=== PATIENT | male | born 1945 | race African-American/Black ===

== ENCOUNTER 2019-06-24 12:17 | Inpatient (IN) ==
[2019-06-24] MEDS ORDERED: SODIUM CHLORIDE 0.9% 500 ML IV STA (12:46)
[2019-06-24] MEDS ORDERED: PANTOPRAZOLE 40 MG VIAL IV STA (12:46)
[2019-06-24] MEDS ORDERED: ONDANSETRON 4 MG/2 ML VIAL IV STA (12:46)
[2019-06-24 13:01] LABS: Basophils # 0.1 10*3/uL (0.0-0.2); Basophils % 0.6 % (0.0-0.8); Eosinophils % 0.4 % (0.00-10.9); Hematocrit 35.3 VOL% (42.0-52.0); Hemoglobin 11.1 GM/DL (14.0-18.0); Immature Granulocytes % 0.3 %; Immature Granulocytes Absolute 0.03 #; Lymphocytes # 1.2 10*3/uL (1.4-4.0); Lymphocytes % 12.9 % (21.2-54.2); Mean Corpuscular HGB Conc 31.4 GM/DL (32-36); Mean Corpuscular Volume 81.5 FL (87-102); Mean Platelet Volume 10.2 FL (9.6-12.0); Monocytes % 4.2 % (1.7-12.7); Neutrophils % 81.6 % (38.7-73.9); Platelet Count 353 T/CUMM (130-400); Red Blood Count 4.33 MC/CUMM (3.8-5.5); Red Cell Distribution Width 14.7 % (9.3-17.3); White Blood Count 9.6 T/CUMM (4-12)
[2019-06-24 13:21] LABS: Albumin 3.3 G/DL (3.4-5.0); Bilirubin,Total 0.4 MG/DL (0.2-1.0); Calcium 10.5 MG/DL (8.5-10.1); Osmolality,Calculated 282.3 MOS/KG (273-304); Total Protein 7.6 G/DL (6.4-8.3)
[2019-06-24 13:35] LABS: Apearance,Urine CLEAR (Clear); Bilirubin,Urine Negative (Negative); Blood, Urine Negative (Negative); Glucose,Urine (UA) Negative (Negative); Ketones,Urine 5 mg/dL (Negative); Nitrite,Urine Negative (Negative); Protein,Urine Negative; Squamous Epithelial Cell,Urine Occasional /HPF (0-10); Urine Color Yellow (Yellow); Urine Specific Gravity 1.018 (1.001-1.035)
[2019-06-24] MEDS ORDERED: ONDANSETRON 4 MG/2 ML VIAL IV PRN (15:56)
[2019-06-24] MEDS ORDERED: [UNRECOGNIZED DRUG - REMARK] PO PRN (15:59)
[2019-06-24] MEDS ORDERED: SODIUM CHLORIDE 0.9% 100 ML IV ONE (16:30)
[2019-06-24] MEDS ORDERED: PIPERACILLIN/TAZOBACTAM 3,375 MG VIAL IV ONE (16:30)
[2019-06-24] MEDS: ENOXAPARIN 40 MG/0.4 ML SYRINGE SUBCUT SCH (16:39)
[2019-06-24] MEDS: PIPERACILLIN/TAZOBACTAM 3,375 MG in SODIUM CHLORIDE 0.9% 100 ML IV SCH ×2 (16:40→22:59)
[2019-06-24] MEDS ORDERED: GLUCAGON 1 MG VIAL IM PRN (17:09)
[2019-06-24] MEDS ORDERED: DEXTROSE 10% 250 ML BAG IV PRN (17:09)
[2019-06-24] MEDS: SODIUM CHLORIDE 0.9% 1,000 ML IV SCH (17:50)
[2019-06-24] MEDS: INSULIN REGULAR 100 UNIT/ML SUBCUT SCH ×2 (17:51→22:49)
[2019-06-24] MEDS: ALBUTEROL/IPRATROPIUM 3 ML NEB RESP TX SCH (18:40)
[2019-06-24] MEDS ORDERED: QUEtiapine 25 MG TABLET PO SCH (21:00)
[2019-06-24] MEDS: GLYCOPYRROLATE 1 MG TABLET PO SCH (21:48)
[2019-06-24] MEDS: ATORVASTATIN 40 MG TABLET PO SCH (21:48)
[2019-06-24] MEDS: DOCUSATE SODIUM 100 MG CAPSULE PO SCH (21:48)
[2019-06-24] MEDS: METOPROLOL TARTRATE 50 MG TABLET PO SCH (21:49)
[2019-06-25] MEDS: ALBUTEROL/IPRATROPIUM 3 ML NEB RESP TX SCH ×4 (00:20→19:00)
[2019-06-25] MEDS: PIPERACILLIN/TAZOBACTAM 3,375 MG in SODIUM CHLORIDE 0.9% 100 ML IV SCH ×3 (04:54→20:21)
[2019-06-25 07:22] LABS: Basophils # 0.1 10*3/uL (0.0-0.2); Eosinophils % 0.3 % (0.00-10.9)
[2019-06-25 07:28] LABS: Hematocrit 28.5 VOL% (42.0-52.0); Immature Granulocytes % 0.2 %; Immature Granulocytes Absolute 0.01 #; Lymphocytes # 2.1 10*3/uL (1.4-4.0); Lymphocytes % 35.6 % (21.2-54.2); Mean Corpuscular HGB Conc 31.9 GM/DL (32-36); Mean Corpuscular Volume 83.8 FL (87-102); Mean Platelet Volume 10.2 FL (9.6-12.0); Monocytes % 8.2 % (1.7-12.7); Neutrophils % 54.7 % (38.7-73.9); Platelet Count 298 T/CUMM (130-400)
[2019-06-25 07:29] LABS: Hemoglobin 9.1 GM/DL (14.0-18.0); White Blood Count 5.9 T/CUMM (4-12)
[2019-06-25 07:52] LABS: Albumin 2.7 G/DL (3.4-5.0); Bilirubin,Total 0.4 MG/DL (0.2-1.0); Calcium 9.3 MG/DL (8.5-10.1); Osmolality,Calculated 291.7 MOS/KG (273-304); Total Protein 6.6 G/DL (6.4-8.3)
[2019-06-25] MEDS ORDERED: LISINOPRIL 20 MG TABLET PO SCH (09:00)
[2019-06-25] MEDS: DOCUSATE SODIUM 100 MG CAPSULE PO SCH ×2 (09:48→21:24)
[2019-06-25] MEDS: METOPROLOL TARTRATE 50 MG TABLET PO SCH ×2 (09:48→21:25)
[2019-06-25] MEDS: TAMSULOSIN 0.4 MG CAPSULE PO SCH (09:48)
[2019-06-25] MEDS: GLYCOPYRROLATE 1 MG TABLET PO SCH ×3 (09:48→21:25)
[2019-06-25] MEDS: amLODIPine 10 MG TABLET PO SCH (09:49)
[2019-06-25] MEDS: LORATADINE 10 MG TABLET PO SCH (09:49)
[2019-06-25] MEDS: POLYETHYLENE GLYCOL POWDER 17 GM PACK PO SCH (09:49)
[2019-06-25] MEDS: QUEtiapine 25 MG TABLET PO SCH ×2 (09:58→21:25)
[2019-06-25] MEDS: LANSOPRAZOLE ODT 30 MG TABLET PO SCH (09:58)
[2019-06-25] MEDS: SODIUM CHLORIDE 0.9% 1,000 ML IV SCH ×2 (11:06→21:24)
[2019-06-25] MEDS: INSULIN REGULAR 100 UNIT/ML SUBCUT SCH ×4 (11:07→21:25)
[2019-06-25] MEDS: ENOXAPARIN 40 MG/0.4 ML SYRINGE SUBCUT SCH (16:33)
[2019-06-25 16:50] LABS: Apearance,Urine Slightly Hazy (Clear); Bilirubin,Urine Negative (Negative); Blood, Urine Negative (Negative); Glucose,Urine (UA) Negative (Negative); Ketones,Urine Negative (Negative); Mucus,Urine Occasional /LPF (Occasional); Nitrite,Urine Negative (Negative); Protein,Urine Negative; RBC,Urine <1 /HPF (0-4); Squamous Epithelial Cell,Urine Occasional /HPF (0-10); Urine Color Amber (Yellow); Urine Specific Gravity 1.023 (1.001-1.035); WBC,Urine 7 /HPF (0-6)
[2019-06-25] MEDS: ATORVASTATIN 40 MG TABLET PO SCH (21:25)
[2019-06-26] MEDS: ALBUTEROL/IPRATROPIUM 3 ML NEB RESP TX SCH ×7 (00:24→22:44)
[2019-06-26] MEDS: PIPERACILLIN/TAZOBACTAM 3,375 MG in SODIUM CHLORIDE 0.9% 100 ML IV SCH ×3 (04:13→21:07)
[2019-06-26 06:30] LABS: Calcium 9.1 MG/DL (8.5-10.1); Osmolality,Calculated 290.6 MOS/KG (273-304)
[2019-06-26] MEDS: SODIUM CHLORIDE 0.9% 1,000 ML IV SCH (08:26)
[2019-06-26] MEDS: INSULIN REGULAR 100 UNIT/ML SUBCUT SCH ×4 (08:42→21:33)
[2019-06-26] MEDS: DORNASE ALFA 2.5 MG/2.5 ML VIAL RESP TX SCH ×2 (08:56→19:13)
[2019-06-26] MEDS ORDERED: LIDOCAINE 2% 5 ML VIAL ONE (09:00)
[2019-06-26] MEDS ORDERED: PROPOFOL 200 MG/20 ML VIAL IV ONE (09:00)
[2019-06-26] MEDS ORDERED: SODIUM PHOSPHATE INJ 15 MMOL in SODIUM CHLORIDE 0.9% 250 ML IV ONE (09:15)
[2019-06-26] MEDS: POLYETHYLENE GLYCOL POWDER 17 GM PACK PO SCH (09:21)
[2019-06-26] MEDS: GLYCOPYRROLATE 1 MG TABLET PO SCH ×3 (09:21→20:51)
[2019-06-26] MEDS: TAMSULOSIN 0.4 MG CAPSULE PO SCH ×3 (09:22→20:51)
[2019-06-26] MEDS: LISINOPRIL 20 MG TABLET PO SCH (09:22)
[2019-06-26] MEDS: METOPROLOL TARTRATE 50 MG TABLET PO SCH ×2 (09:22→21:03)
[2019-06-26] MEDS: QUEtiapine 25 MG TABLET PO SCH ×2 (09:22→21:04)
[2019-06-26] MEDS: LORATADINE 10 MG TABLET PO SCH (09:22)
[2019-06-26] MEDS: DOCUSATE SODIUM 100 MG CAPSULE PO SCH ×2 (09:23→21:03)
[2019-06-26] MEDS: LANSOPRAZOLE ODT 30 MG TABLET PO SCH (09:23)
[2019-06-26] MEDS: amLODIPine 10 MG TABLET PO SCH (09:23)
[2019-06-26] MEDS ORDERED: DEXTROSE 50% 25 GM/50 ML VIAL IV PRN (11:27)
[2019-06-26] MEDS: ENOXAPARIN 40 MG/0.4 ML SYRINGE SUBCUT SCH (17:00)
[2019-06-26] MEDS: ACETAMINOPHEN 325 MG TABLET PO PRN (20:51)
[2019-06-26] MEDS: DUTASTERIDE 0.5 MG CAPSULE PO SCH (20:51)
[2019-06-26] MEDS: ATORVASTATIN 40 MG TABLET PO SCH (21:03)
[2019-06-27] MEDS: ALBUTEROL/IPRATROPIUM 3 ML NEB RESP TX SCH ×6 (02:54→23:43)
[2019-06-27] MEDS: PIPERACILLIN/TAZOBACTAM 3,375 MG in SODIUM CHLORIDE 0.9% 100 ML IV SCH ×3 (04:03→21:12)
[2019-06-27 06:53] LABS: Osmolality,Calculated 295.7 MOS/KG (273-304)
[2019-06-27] MEDS: DORNASE ALFA 2.5 MG/2.5 ML VIAL RESP TX SCH ×2 (07:33→19:41)
[2019-06-27] MEDS: POLYETHYLENE GLYCOL POWDER 17 GM PACK PO SCH (08:39)
[2019-06-27] MEDS: LISINOPRIL 20 MG TABLET PO SCH (08:39)
[2019-06-27] MEDS: amLODIPine 10 MG TABLET PO SCH (08:40)
[2019-06-27] MEDS: LORATADINE 10 MG TABLET PO SCH (08:40)
[2019-06-27] MEDS: QUEtiapine 25 MG TABLET PO SCH ×2 (08:40→21:11)
[2019-06-27] MEDS: TAMSULOSIN 0.4 MG CAPSULE PO SCH ×2 (08:40→21:10)
[2019-06-27] MEDS: GLYCOPYRROLATE 1 MG TABLET PO SCH ×3 (08:40→21:11)
[2019-06-27] MEDS: LANSOPRAZOLE ODT 30 MG TABLET PO SCH (08:40)
[2019-06-27] MEDS: INSULIN REGULAR 100 UNIT/ML SUBCUT SCH ×4 (08:41→21:39)
[2019-06-27] MEDS: METOPROLOL TARTRATE 50 MG TABLET PO SCH ×2 (08:41→21:10)
[2019-06-27] MEDS: DOCUSATE SODIUM 100 MG CAPSULE PO SCH ×2 (08:41→21:10)
[2019-06-27] MEDS: ENOXAPARIN 40 MG/0.4 ML SYRINGE SUBCUT SCH (16:39)
[2019-06-27 19:04] LABS: Osmolality,Calculated 291.1 MOS/KG (273-304)
[2019-06-27] MEDS: ATORVASTATIN 40 MG TABLET PO SCH (21:10)
[2019-06-27] MEDS: DUTASTERIDE 0.5 MG CAPSULE PO SCH (21:10)
[2019-06-27] MEDS: ACETAMINOPHEN 325 MG TABLET PO PRN (21:19)
[2019-06-28] MEDS: ALBUTEROL/IPRATROPIUM 3 ML NEB RESP TX SCH ×3 (02:03→10:54)
[2019-06-28] MEDS: PIPERACILLIN/TAZOBACTAM 3,375 MG in SODIUM CHLORIDE 0.9% 100 ML IV SCH ×2 (04:33→13:28)
[2019-06-28 05:09] LABS: Basophils % 0.6 % (0.0-0.8); Eosinophils # 0.2 10*3/uL (0.0-0.87); Eosinophils % 2.7 % (0.00-10.9); Hemoglobin 8.7 GM/DL (14.0-18.0); Immature Granulocytes % 0.3 %; Immature Granulocytes Absolute 0.02 #; Lymphocytes % 29.7 % (21.2-54.2); Mean Corpuscular HGB Conc 31.1 GM/DL (32-36); Mean Corpuscular Volume 82.4 FL (87-102); Mean Platelet Volume 10.7 FL (9.6-12.0); Monocytes % 6.4 % (1.7-12.7); Neutrophils % 60.3 % (38.7-73.9); Platelet Count 239 T/CUMM (130-400); White Blood Count 6.6 T/CUMM (4-12)
[2019-06-28] MEDS: DORNASE ALFA 2.5 MG/2.5 ML VIAL RESP TX SCH (07:25)
[2019-06-28] MEDS: POLYETHYLENE GLYCOL POWDER 17 GM PACK PO SCH (09:16)
[2019-06-28] MEDS: amLODIPine 10 MG TABLET PO SCH (09:17)
[2019-06-28] MEDS: TAMSULOSIN 0.4 MG CAPSULE PO SCH (09:17)
[2019-06-28] MEDS: QUEtiapine 25 MG TABLET PO SCH (09:17)
[2019-06-28] MEDS: LISINOPRIL 20 MG TABLET PO SCH (09:17)
[2019-06-28] MEDS: LORATADINE 10 MG TABLET PO SCH (09:18)
[2019-06-28] MEDS: GLYCOPYRROLATE 1 MG TABLET PO SCH (09:18)
[2019-06-28] MEDS: METOPROLOL TARTRATE 50 MG TABLET PO SCH (09:18)
[2019-06-28] MEDS: DOCUSATE SODIUM 100 MG CAPSULE PO SCH (09:18)
[2019-06-28] MEDS: ACETAMINOPHEN 325 MG TABLET PO PRN (09:18)
[2019-06-28] MEDS: LANSOPRAZOLE ODT 30 MG TABLET PO SCH (09:19)
[2019-06-28] MEDS: INSULIN REGULAR 100 UNIT/ML SUBCUT SCH ×2 (09:21→13:28)
[2019-06-28 13:30] VITALS: BP 127/67
== END 2019-06-28 13:14 | DRG 393 ==
LOC: EDUNIT# → EDBD → N.ED 12:17 → N.5E 12:17 → OBSVTOIN 15:56 → N.EDINP 15:56 → INTOOBSV 15:56 → N.5E 17:08
PROVIDERS: ADMIT Internal Medicine; ATTEND Internal Medicine
PROC: EGDWPEG (ICD-10-PCS; 2019-06-26 08:35)

== ENCOUNTER 2019-07-15 10:16 | Inpatient (IN) ==
[2019-07-15] MEDS ORDERED: PIPERACILLIN/TAZOBACTAM 3,375 MG in SODIUM CHLORIDE 0.9% 100 ML IV STA (10:41)
[2019-07-15] MEDS ORDERED: ALBUTEROL 2.5 MG/3 ML NEB RESP TX STA (10:41)
[2019-07-15] MEDS ORDERED: SODIUM CHLORIDE 0.9% 1,000 ML IV STA ×2 (10:41→13:27)
[2019-07-15 12:03] LABS: INR 0.9; PT Patient Result 10.2 SECS (9.6-12.2)
[2019-07-15 12:18] LABS: Albumin 2.5 G/DL (3.4-5.0); Basophils % 0.1 % (0.0-0.8); Bilirubin,Total 0.4 MG/DL (0.2-1.0); Calcium 9.7 MG/DL (8.5-10.1); Hematocrit 33.2 VOL% (42.0-52.0); Hemoglobin 10.3 GM/DL (14.0-18.0); Immature Granulocytes % 0.5 %; Immature Granulocytes Absolute 0.08 #; Lymphocytes # 0.9 10*3/uL (1.4-4.0); Lymphocytes % 5.8 % (21.2-54.2); Mean Corpuscular Volume 81.6 FL (87-102); Neutrophils % 89.6 % (38.7-73.9); Osmolality,Calculated 311.7 MOS/KG (273-304); Platelet Count 283 T/CUMM (130-400); Red Blood Count 4.07 MC/CUMM (3.8-5.5); Red Cell Distribution Width 15.5 % (9.3-17.3); Total Protein 7.3 G/DL (6.4-8.3); White Blood Count 15.3 T/CUMM (4-12)
[2019-07-15] MEDS ORDERED: ACETAMINOPHEN 325 MG TABLET PO PRN (13:47)
[2019-07-15] MEDS ORDERED: ALBUTEROL 2.5 MG/3 ML NEB RESP TX PRN (13:47)
[2019-07-15] MEDS ORDERED: ONDANSETRON 4 MG/2 ML VIAL IV PRN (13:47)
[2019-07-15] MEDS ORDERED: PROMETHAZINE 25 MG/1 ML VIAL IM PRN (13:47)
[2019-07-15] MEDS ORDERED: NOREPINEPHRINE 8 MG in SODIUM CHLORIDE 0.9% 242 ML IV PRN (13:55)
[2019-07-15] MEDS ORDERED: SODIUM CHLORIDE 0.9% 500 ML IV STA (13:55)
[2019-07-15] MEDS ORDERED: GLUCAGON 1 MG VIAL IM PRN (13:58)
[2019-07-15] MEDS ORDERED: DEXTROSE 10% 250 ML BAG IV PRN (13:58)
[2019-07-15] MEDS ORDERED: SALIVA SUBSTITUTE SPRAY 60 ML CAN SWISH/SPIT PRN (14:01)
[2019-07-15 14:55] LABS: Thyroid Stimulating Hormone 1.6 uIU/ml (0.358-3.74)
[2019-07-15] MEDS ORDERED: ENOXAPARIN 30 MG/0.3 ML SYRINGE SUBCUT SCH (15:00)
[2019-07-15] MEDS ORDERED: LEVOFLOXACIN INJ 750 MG in PREMIX 1 EACH IV SCH (15:00)
[2019-07-15 15:07] LABS: Apearance,Urine CLOUDY (Clear); Bacteria,Urine Occasional /HPF (Few); Bilirubin,Urine Negative (Negative); Blood, Urine Large mg/dL (Negative); Glucose,Urine (UA) 50 mg/dL (Negative); Hyaline Casts,Urine 3 /LPF (0-3); Ketones,Urine Negative (Negative); Nitrite,Urine Negative (Negative); Protein,Urine 30 MG/DL; Squamous Epithelial Cell,Urine Occasional /HPF (0-10); Urine Color Amber (Yellow); Urine Specific Gravity 1.019 (1.001-1.035); Urine Urobilinogen < 2.0 EU/DL (0.2-1.0); WBC,Urine 7 /HPF (0-6)
[2019-07-15] MEDS: ALBUTEROL/IPRATROPIUM 3 ML NEB RESP TX SCH ×2 (16:05→20:14)
[2019-07-15] MEDS: DEXTROSE 5% NACL 0.45% 1,000 ML IV SCH (16:30)
[2019-07-15 17:36] LABS: INR 0.9; PT Patient Result 10.3 SECS (9.6-12.2)
[2019-07-15] MEDS: CEFEPIME 1,000 MG in SODIUM CHLORIDE 0.9% 100 ML IV SCH (18:33)
[2019-07-15] MEDS: HYDROCORTISONE 100 MG VIAL IV SCH (18:34)
[2019-07-15] MEDS ORDERED: ALBUTEROL/IPRATROPIUM 3 ML NEB RESP TX SCH (19:00)
[2019-07-15] MEDS: VANCOMYCIN INJ 1,000 MG in SODIUM CHLORIDE 0.9% 250 ML IV SCH (19:17)
[2019-07-15 19:29] LABS: Apearance,Urine CLOUDY (Clear); Bilirubin,Urine Negative (Negative); Blood, Urine Large mg/dL (Negative); Glucose,Urine (UA) 50 mg/dL (Negative); Ketones,Urine Negative (Negative); Mucus,Urine Occasional /LPF (Occasional); Nitrite,Urine Negative (Negative); Protein,Urine 30 MG/DL; Squamous Epithelial Cell,Urine Occasional /HPF (0-10); Urine Color Amber (Yellow); Urine Specific Gravity 1.018 (1.001-1.035); Urine Urobilinogen < 2.0 EU/DL (0.2-1.0); WBC,Urine 3 /HPF (0-6)
[2019-07-15] MEDS: INSULIN LISPRO 100 UNIT/ML SUBCUT SCH (20:05)
[2019-07-15] MEDS: DORNASE ALFA 2.5 MG/2.5 ML VIAL RESP TX SCH (20:14)
[2019-07-15] MEDS: DUTASTERIDE 0.5 MG CAPSULE PO SCH (20:33)
[2019-07-15] MEDS: TAMSULOSIN 0.4 MG CAPSULE PO SCH (20:36)
[2019-07-15] MEDS ORDERED: ATORVASTATIN 40 MG TABLET PEG SCH (21:00)
[2019-07-16] MEDS: CEFEPIME 1,000 MG in SODIUM CHLORIDE 0.9% 100 ML IV SCH ×3 (00:01→16:00)
[2019-07-16] MEDS: HYDROCORTISONE 100 MG VIAL IV SCH ×4 (00:01→16:15)
[2019-07-16] MEDS: INSULIN LISPRO 100 UNIT/ML SUBCUT SCH ×4 (00:04→19:11)
[2019-07-16] MEDS: ALBUTEROL/IPRATROPIUM 3 ML NEB RESP TX SCH ×7 (00:17→23:31)
[2019-07-16] MEDS: DEXTROSE 5% NACL 0.45% 1,000 ML IV SCH ×3 (00:30→16:56)
[2019-07-16 04:55] LABS: Hemoglobin 9.1 GM/DL (14.0-18.0); Immature Granulocytes % 0.3 %; Immature Granulocytes Absolute 0.04 #; Lymphocytes # 0.6 10*3/uL (1.4-4.0); Mean Corpuscular HGB Conc 30.3 GM/DL (32-36); Mean Corpuscular Volume 82.6 FL (87-102); Monocytes % 2.3 % (1.7-12.7); Neutrophils % 92.4 % (38.7-73.9); Platelet Count 242 T/CUMM (130-400); Red Blood Count 3.63 MC/CUMM (3.8-5.5); Red Cell Distribution Width 15.4 % (9.3-17.3); White Blood Count 12.4 T/CUMM (4-12)
[2019-07-16 05:16] LABS: Bilirubin,Total 0.6 MG/DL (0.2-1.0); Calcium 9.1 MG/DL (8.5-10.1); Osmolality,Calculated 309.7 MOS/KG (273-304); Risk Ratio 2.29; Total Protein 6.4 G/DL (6.4-8.3); VLDL CHOLESTEROL 19.4 MG/DL
[2019-07-16 05:47] LABS: Band Neutrophils 1 % (0-10); Lymphocytes 5 % (20-55); Platelet Estimate Adequate; Segmented Neutrophils 92 % (50-85); Total Cells Counted 100
[2019-07-16 05:48] LABS: Hypochromasia 1+; Ovalocytes Slight
[2019-07-16] MEDS: DORNASE ALFA 2.5 MG/2.5 ML VIAL RESP TX SCH ×2 (07:52→20:35)
[2019-07-16] MEDS ORDERED: PANTOPRAZOLE 40 MG TABLET PO SCH (09:00)
[2019-07-16] MEDS ORDERED: FUROSEMIDE 40 MG/4 ML VIAL IV ONE (09:10)
[2019-07-16] MEDS: GLYCOPYRROLATE 1 MG TABLET PEG SCH (09:30)
[2019-07-16] MEDS: LANSOPRAZOLE ODT 30 MG TABLET PEG SCH (09:30)
[2019-07-16] MEDS: TAMSULOSIN 0.4 MG CAPSULE PO SCH ×2 (09:30→20:19)
[2019-07-16] MEDS: POLYETHYLENE GLYCOL POWDER 17 GM PACK PEG SCH (09:30)
[2019-07-16] MEDS ORDERED: ALBUMIN 25% 25 GM in PREMIX 1 EACH IV ONE (11:30)
[2019-07-16] MEDS ORDERED: DEXTROSE 50% 25 GM/50 ML VIAL IV PRN (13:09)
[2019-07-16] MEDS: VANCOMYCIN INJ 1,000 MG in SODIUM CHLORIDE 0.9% 250 ML IV SCH (19:11)
[2019-07-16] MEDS: ENOXAPARIN 40 MG/0.4 ML SYRINGE SUBCUT SCH (20:19)
[2019-07-16] MEDS: DUTASTERIDE 0.5 MG CAPSULE PO SCH (20:19)
[2019-07-16] MEDS ORDERED: FLUDROCORTISONE 0.1 MG TABLET PO SCH (21:00)
[2019-07-16] MEDS ORDERED: METOPROLOL TARTRATE 50 MG TABLET PEG SCH (21:00)
[2019-07-17] MEDS: HYDROCORTISONE 100 MG VIAL IV SCH ×4 (00:55→16:24)
[2019-07-17] MEDS: CEFEPIME 1,000 MG in SODIUM CHLORIDE 0.9% 100 ML IV SCH ×4 (00:59→20:21)
[2019-07-17] MEDS: INSULIN LISPRO 100 UNIT/ML SUBCUT SCH ×4 (01:45→17:44)
[2019-07-17] MEDS: ALBUTEROL/IPRATROPIUM 3 ML NEB RESP TX SCH ×5 (04:20→19:08)
[2019-07-17 04:40] LABS: Basophils % 0.1 % (0.0-0.8); Hematocrit 28.9 VOL% (42.0-52.0); Hemoglobin 8.9 GM/DL (14.0-18.0); Immature Granulocytes % 1.3 %; Immature Granulocytes Absolute 0.13 #; Lymphocytes # 0.7 10*3/uL (1.4-4.0); Lymphocytes % 7.2 % (21.2-54.2); Mean Corpuscular HGB Conc 30.8 GM/DL (32-36); Mean Corpuscular Volume 83.3 FL (87-102); Mean Platelet Volume 11.2 FL (9.6-12.0); Monocytes % 3.6 % (1.7-12.7); Neutrophils % 87.8 % (38.7-73.9); Platelet Count 240 T/CUMM (130-400); Red Blood Count 3.47 MC/CUMM (3.8-5.5); Red Cell Distribution Width 15.3 % (9.3-17.3)
[2019-07-17 05:18] LABS: Prealbumin 7.8 MG/DL (20-40)
[2019-07-17 05:24] LABS: Albumin 2.3 G/DL (3.4-5.0); Bilirubin,Total 0.4 MG/DL (0.2-1.0); Calcium 9.4 MG/DL (8.5-10.1); Osmolality,Calculated 317.9 MOS/KG (273-304); Total Protein 6.7 G/DL (6.4-8.3)
[2019-07-17] MEDS: DORNASE ALFA 2.5 MG/2.5 ML VIAL RESP TX SCH ×2 (07:39→19:08)
[2019-07-17] MEDS: DEXTROSE 5% NACL 0.45% 1,000 ML IV SCH ×2 (07:53→08:59)
[2019-07-17] MEDS: LANSOPRAZOLE ODT 30 MG TABLET PEG SCH (08:32)
[2019-07-17] MEDS: amLODIPine 10 MG TABLET PO SCH (08:32)
[2019-07-17] MEDS: TAMSULOSIN 0.4 MG CAPSULE PO SCH ×2 (08:32→20:24)
[2019-07-17] MEDS: POLYETHYLENE GLYCOL POWDER 17 GM PACK PEG SCH (08:32)
[2019-07-17] MEDS: METOPROLOL TARTRATE 50 MG TABLET PEG SCH ×2 (08:32→20:24)
[2019-07-17] MEDS: GLYCOPYRROLATE 1 MG TABLET PEG SCH (08:32)
[2019-07-17] MEDS: QUEtiapine 25 MG TABLET PEG SCH (14:08)
[2019-07-17] MEDS: VANCOMYCIN INJ 1,000 MG in SODIUM CHLORIDE 0.9% 250 ML IV SCH (17:44)
[2019-07-17] MEDS: ENOXAPARIN 40 MG/0.4 ML SYRINGE SUBCUT SCH (20:23)
[2019-07-17] MEDS: DUTASTERIDE 0.5 MG CAPSULE PO SCH (20:24)
[2019-07-17] MEDS ORDERED: QUEtiapine 25 MG TABLET PO SCH (21:00)
[2019-07-18] MEDS: ALBUTEROL/IPRATROPIUM 3 ML NEB RESP TX SCH ×4 (00:02→11:43)
[2019-07-18] MEDS: HYDROCORTISONE 100 MG VIAL IV SCH ×2 (00:32→09:50)
[2019-07-18] MEDS: INSULIN LISPRO 100 UNIT/ML SUBCUT SCH ×3 (00:33→12:35)
[2019-07-18] MEDS: CEFEPIME 1,000 MG in SODIUM CHLORIDE 0.9% 100 ML IV SCH ×2 (03:42→09:55)
[2019-07-18] MEDS: DORNASE ALFA 2.5 MG/2.5 ML VIAL RESP TX SCH (07:11)
[2019-07-18 07:50] VITALS: BP 178/89
[2019-07-18 08:31] LABS: Basophils % 0.1 % (0.0-0.8); Hematocrit 31.6 VOL% (42.0-52.0); Hemoglobin 9.5 GM/DL (14.0-18.0); Immature Granulocytes % 0.5 %; Immature Granulocytes Absolute 0.05 #; Lymphocytes # 1.6 10*3/uL (1.4-4.0); Lymphocytes % 16.4 % (21.2-54.2); Mean Corpuscular HGB Conc 30.1 GM/DL (32-36); Mean Corpuscular Volume 83.8 FL (87-102); Mean Platelet Volume 10.9 FL (9.6-12.0); Monocytes % 3.3 % (1.7-12.7); Neutrophils % 79.7 % (38.7-73.9); Platelet Count 259 T/CUMM (130-400); Red Blood Count 3.77 MC/CUMM (3.8-5.5); Red Cell Distribution Width 15.2 % (9.3-17.3)
[2019-07-18 08:39] LABS: Calcium 9.3 MG/DL (8.5-10.1); Osmolality,Calculated 307.1 MOS/KG (273-304)
[2019-07-18] MEDS: METOPROLOL TARTRATE 50 MG TABLET PEG SCH (09:49)
[2019-07-18] MEDS: POLYETHYLENE GLYCOL POWDER 17 GM PACK PEG SCH (09:49)
[2019-07-18] MEDS: amLODIPine 10 MG TABLET PO SCH (09:49)
[2019-07-18] MEDS: TAMSULOSIN 0.4 MG CAPSULE PO SCH (09:49)
[2019-07-18] MEDS: QUEtiapine 25 MG TABLET PEG SCH (09:50)
[2019-07-18] MEDS: LANSOPRAZOLE ODT 30 MG TABLET PEG SCH (09:50)
[2019-07-18] MEDS: GLYCOPYRROLATE 1 MG TABLET PEG SCH (09:50)
[2019-07-18] MEDS: DEXTROSE 5% NACL 0.45% 1,000 ML IV SCH (09:51)
== END 2019-07-18 12:34 | DRG 871 ==
LOC: EDBD → EDUNIT# → N.ED 10:16 → N.EDINP 13:47 → SUATTDRO 13:47 → N.CC 14:27 → N.2E 07-17 12:28
PROVIDERS: ADMIT Internal Medicine; ATTEND Internal Medicine